=== PATIENT | male | born 1945 | race Caucasian/White ===

== ENCOUNTER → 2017-09-24 | Outpatient (CLI) | payer OTHER | LOC: CIMAGING 11:12 | DX: Z13.6 Encounter for screening for cardiovascular disorders (principal); I71.2 Thoracic aortic aneurysm, without rupture; R91.8 Other nonspecific abnormal finding of lung field; Z87.891 Personal history of nicotine dependence | CPT/HCPCS: 75571-PO ==

== ENCOUNTER → 2018-09-26 | Outpatient (CLI) | payer OTHER, BC | LOC: EMCIMAGING 09:14 ==